=== PATIENT | male | born 1955 | race Caucasian/White ===

== ENCOUNTER 2017-02-08 14:21 | Emergency (ER) | payer MEDICARE, OTHER ==
--- NOTE | 2017-02-08 14:42 | ER Document Report ---
ED Medical Screen (RME) - General Chief Complaint: Fall Injury Stated Complaint: BACK,HIP,STOMACH PAIN Time Seen by Provider: 02/08/17 14:33 Notes: 61-year-old male who states 1 week ago he fell from a ladder onto his back from 12 feet. Patient denies any head trauma loss of consciousness. Patient states he has had some right hip pain since the fall. Patient states 3 days ago he started to develop some midline abdominal pain without radiation. He also states he feels as if his whole "back is on fire". Patient is on disability with a pain management physician secondary to back pain and surgery in the past. Patient states he also was diagnosed with a AAA past October 4.6 cms in diameter. Patient denies any weakness, numbness, chest pain, nausea, vomiting, fevers, dysuria, or diarrhea. On examination I can palpate the patient's aorta. Patient is very thin. I can auscultate no abdominal bruits. No obvious abdominal tenderness to palpation of all 4 quadrants of the abdomen. I do not detect any neck pain or stiffness. Patient has a full range of motion of the neck. Patient has no obvious tenderness to percussion of the midline spine. Patient has some right hip tenderness with no obvious swelling or deformity. Neurovascular intact distally. Given the above history and physical examination I will obtain a CT scan with IV contrast of the abdomen and pelvis to assess both the aorta and the right hip. TRAVEL OUTSIDE OF THE [place] IN LAST 30 DAYS: No - Related Data Allergies/Adverse Reactions: No Known Allergies Allergy (Verified 02/08/17 14:23) Past Medical History - Past Medical History Cardiac Medical History: Reports: Hx Hypertension Renal/ Medical History: Denies: Hx Peritoneal Dialysis Psychiatric Medical History: Reports: Hx Depression Past Surgical History: Reports: Hx Abdominal Surgery - hernia, Hx Orthopedic Surgery - l4 l5 fusion, left hand - Immunizations Hx Diphtheria, Pertussis, Tetanus Vaccination: No Physical Exam - Vital signs Vitals: Temp Pulse Resp BP Pulse Ox 98.4 F 77 18 167/70 H 99 02/08/17 14:25 02/08/17 14:25 02/08/17 14:25 02/08/17 14:25 02/08/17 14:25 Course - Vital Signs Vital signs: Temp Pulse Resp BP Pulse Ox 98.4 F 77 18 167/70 H 99 02/08/17 14:25 02/08/17 14:25 02/08/17 14:25 02/08/17 14:25 02/08/17 14:25
[2017-02-08 15:06] LABS: ABSOLUTE BASOPHILS # (AUTO) 0.1 10^3/uL (0.0-0.2); ABSOLUTE EOSINOPHILS # (AUTO) 0.2 10^3/uL (0.0-0.6); ABSOLUTE LYMPHOCYTES (AUTO) 2.1 10^3/uL (0.5-4.7); ABSOLUTE MONOCYTES (AUTO) 1.3 10^3/uL (0.1-1.4); ABSOLUTE NEUT (AUTO) 6.6 10^3/uL (1.7-8.2); BASOPHILS % (AUTO) 0.6 % (0-2); EOSINOPHILS % (AUTO) 2.1 % (0-6); HEMATOCRIT 38.9 % (37.9-51.0); HEMOGLOBIN 13.1 g/dL (13.5-17.0); HGB HCT DIFFERENCE 0.4; LYMPHOCYTES % (AUTO) 20.4 % (13-45); MEAN CORPUSCULAR HEMOGLOBIN 31.8 pg (27.0-33.4); MEAN CORPUSCULAR HGB CONC 33.6 g/dL (32.0-36.0); MEAN CORPUSCULAR VOLUME 95 fl (80-97); MONOCYTES % (AUTO) 12.4 % (3-13); RED BLOOD COUNT 4.11 10^6/uL (4.35-5.55); RED CELL DISTRIBUTION WIDTH 13.9 % (11.5-14.0); SEGMENTED NEUTROPHILS % (AUTO) 64.5 % (42-78); WHITE BLOOD COUNT 10.3 10^3/uL (4.0-10.5)
--- NOTE | 2017-02-08 15:33 | ER Document Report ---
ED General - General Mode of Arrival: Ambulatory Information source: Patient TRAVEL OUTSIDE OF THE [place] IN LAST 30 DAYS: No - HPI Patient complains to provider of: Right hip pain and possible rash Onset: Other - 3 days ago Associated symptoms: Other - see notes above <DERIK GARCIA - Last Filed: 02/08/17 19:48> <SHELLEYHAI ANN - Last Filed: 02/08/17 22:14> - General Chief Complaint: Fall Injury Stated Complaint: BACK,HIP,STOMACH PAIN Time Seen by Provider: 02/08/17 14:33 Notes: 61 year old male with history of hypertension, hyperlipidemia, tongue cancer, L4 /L5 fusion, and chronic back pain presents to the ED complaining of right hip pain and a possible rash to the upper back, neck, and arms that started 3 days ago. Patient explains that his back 'feels like he has a 2nd degree burn with blisters and as if someone is lifting his shirt over the blisters.' Patient also complains of bumps to the neck and bilateral arms that are pruritic and mild abdominal pain. Patient denies chest pain or shortness of breath. Patient states that 1 week ago he fell off a ladder while 15 feet off the ground and landed on his back. Patient sees pain management is currently on Valium, Suboxone, and Percocet. (DERIK GARCIA) - Related Data Allergies/Adverse Reactions: No Known Allergies Allergy (Verified 02/08/17 14:23) Past Medical History - General Information source: Patient - Social History Smoking Status: Unknown if Ever Smoked Family History: Reviewed & Not Pertinent - Past Medical History Cardiac Medical History: Reports: Hx Hypercholesterolemia, Hx Hypertension Renal/ Medical History: Denies: Hx Peritoneal Dialysis GI Medical History: Reports: Other - Abdominal Aorta Aneurysm Psychiatric Medical History: Reports: Hx Depression Past Surgical History: Reports: Hx Abdominal Surgery - hernia, Hx Orthopedic Surgery - l4 l5 fusion, left hand, Other - tongue surgery secondary to tongue cancer - Immunizations Hx Diphtheria, Pertussis, Tetanus Vaccination: No <DERIK GARCIA - Last Filed: 02/08/17 19:48> Review of Systems - Review of Systems Constitutional: No symptoms reported EENT: No symptoms reported Cardiovascular: No symptoms reported Respiratory: No symptoms reported Gastrointestinal: No symptoms reported Genitourinary: No symptoms reported Male Genitourinary: No symptoms reported Musculoskeletal: See HPI, Joint pain - right hip pain Skin: See HPI, Rash - upper back, neck, and bilateral arms Hematologic/Lymphatic: No symptoms reported Neurological/Psychological: No symptoms reported -: Yes All other systems reviewed and negative <DERIK GARCIA - Last Filed: 02/08/17 19:48> Physical Exam - Vital signs Interpretation: Normal - General General appearance: Appears well, Alert - HEENT Head: Normocephalic, Atraumatic Eyes: Normal Pupils: PERRL - Respiratory Respiratory status: No respiratory distress Chest status: Nontender Breath sounds: Normal Chest palpation: Normal - Cardiovascular Rhythm: Regular Heart sounds: Normal auscultation Murmur: No - Abdominal Inspection: Normal Distension: No distension Bowel sounds: Normal Tenderness: Nontender Organomegaly: No organomegaly - Back Back: Normal, Tender, Other - No rash or lesion. Tenderness to palpation of bilateral upper back and bilateral lower back. No midline tenderness to palpation.. No: Vertebra tenderness, Wounds - Extremities General upper extremity: Normal inspection, Nontender, Normal color, Normal ROM , Normal temperature General lower extremity: Normal inspection, Nontender, Normal color, Normal ROM , Normal temperature, Normal weight bearing. No: Alexandria's sign Hip: Tender - R hip. No: Pain with ROM, Unable to bear weight - Neurological Neuro grossly intact: Yes Cognition: Normal Orientation: AAOx4 Diana Coma Scale Eye Opening: Spontaneous Diana Coma Scale Verbal: Oriented [place] Coma Scale Motor: Obeys Commands Diana Coma Scale Total: 15 Speech: Normal Motor strength normal: LUE, RUE, LLE, RLE Sensory: Altered light touch - upper back T4-10 b/l. Can feel pressure but states no 2 point discrimination - Psychological Associated symptoms: Normal affect, Normal mood - Skin Skin Temperature: Warm Skin Moisture: Dry Skin Color: Normal <HAI ROSA - Last Filed: 02/08/17 22:14> - Vital signs Vitals: Temp Pulse Resp BP Pulse Ox 98.4 F 77 18 167/70 H 99 02/08/17 14:25 02/08/17 14:25 02/08/17 14:25 02/08/17 14:25 02/08/17 14:25 Course - Laboratory Result Diagrams: 02/08/17 14:50 02/08/17 16:58 <DERIK GARCIA - Last Filed: 02/08/17 19:48> - Laboratory Result Diagrams: 02/08/17 14:50 02/08/17 16:58 <HAI ROSA - Last Filed: 02/08/17 22:14> - Re-evaluation Re-evalutation: 02/08/17 19:40 Patient updated on results. (DERIK GARCIA) 02/08/17 18:27 Patient is a 61-year-old male who comes in after a fall last week. Patient is in pain management and is taking pain medication at home. He is concerned about his sensation in his upper back. He does not have an appointment with his doctor until February 25. 02/08/17 20:10 No acute findings on blood work or on imaging. No evidence for acute intrathoracic printer intraspinal pathology. Patient is to follow-up with his doctor. He has been given an outpatient form for MRI. Patient agrees with this plan. No weakness. Full range of motion. Return if any worsening or concerning symptoms. Stable for discharge. (HAI ROSA) - Vital Signs Vital signs: Temp Pulse Resp BP Pulse Ox 98.1 F 82 18 154/78 H 100 02/08/17 20:15 02/08/17 20:15 02/08/17 20:15 02/08/17 20:15 02/08/17 20:15 - Laboratory Laboratory results interpreted by me: 02/08/17 02/08/17 14:50 16:58 RBC 4.11 L Hgb 13.1 L Potassium 5.1 H Carbon Dioxide 31 H Glucose 123 H AST 14 L Discharge <DERIK GARCIA - Last Filed: 02/08/17 19:48> <HAI ROSA - Last Filed: 02/08/17 22:14> - Discharge Clinical Impression: Contusion of hip Qualifiers: Encounter type: initial encounter Laterality: right Qualified Code(s): S70.01XA - Contusion of right hip, initial encounter Back pain Qualifiers: Back pain location: thoracic back pain Chronicity: acute Back pain laterality: bilateral Qualified Code(s): M54.6 - Pain in thoracic spine Condition: Stable Disposition: HOME, SELF-CARE Instructions: Low Back Pain ([facility]), Upper Back Strain ([facility]) Forms: Follow-Up Radiology Testing Referrals: AB BONDS MD [Primary Care Provider] - Follow up tomorrow Joey Attestation: 02/08/17 22:14 I personally performed the services described in the documentation, reviewed and edited the documentation which was dictated to the scribe in my presence, and it accurately records my words and actions. (HAI ROSA) Scribe Documentation - Scribe Written by Joey:: Joey Macedo, 02/08/2017 1554 acting as scribe for :: Shelley <DERIK GARCIA - Last Filed: 02/08/17 19:48>
[2017-02-08] MEDS ORDERED: ONDANSETRON HCL INJ/PF 4 MG/2 ML SDV IV ONE (16:03)
[2017-02-08] MEDS ORDERED: MORPHINE SULFATE 10 MG/ML INJ IV ONE ×2 (16:03→18:47)
[2017-02-08 18:18] LABS: ALANINE AMINOTRANSFERASE 24 U/L (21-72); ALBUMIN 3.8 g/dL (3.5-5.0); ALKALINE PHOSPHATASE 80 U/L (38-126); ANION GAP 8 (5-19); ASPARTATE AMINO TRANSFERASE 14 U/L (17-59); BILIRUBIN,DIRECT 0.3 mg/dL (0.0-0.4); BILIRUBIN,TOTAL 0.4 mg/dL (0.2-1.3); BLOOD UREA NITROGEN 15 mg/dL (7-20); CALCIUM 9.7 mg/dL (8.4-10.2); CARBON DIOXIDE 31 mmol/L (22-30); CHLORIDE 99 mmol/L (98-107); CREATININE RESULT 0.63 mg/dL (0.52-1.25); GLUCOSE 123 mg/dL (75-110); LIPASE 78.4 U/L (23-300); POTASSIUM 5.1 mmol/L (3.6-5.0); SODIUM 137.7 mmol/L (137-145); TOTAL PROTEIN 6.7 g/dL (6.3-8.2)
[2017-02-08 20:24] VITALS: BP 154/78
== END 2017-02-08 20:15 | disposition home or self-care (01) ==
LOC: ER 14:21
DX: S70.01XA Contusion of right hip, initial encounter (principal); M54.6 Pain in thoracic spine; M54.9 Dorsalgia, unspecified; M25.559 Pain in unspecified hip; R10.9 Unspecified abdominal pain; I10 Essential (primary) hypertension; E78.5 Hyperlipidemia, unspecified; Z85.810 Personal history of malignant neoplasm of tongue; X58.XXXA Exposure to other specified factors, initial encounter
CPT/HCPCS: 96376; 99284; 96374; 96375; 36415; 83690; 85025; 80053; 71260; 74177; J2270; J2405

== ENCOUNTER → 2017-02-11 | Outpatient (CLI) | payer MEDICARE, OTHER | LOC: RAD 15:27 | PROVIDERS: ATTEND Emergency Medicine | DX: M54.9 Dorsalgia, unspecified (principal); R20.9 Unspecified disturbances of skin sensation | CPT/HCPCS: 72146 ==

== ENCOUNTER 2017-06-16 19:59 | Emergency (ER) | payer MEDICARE, OTHER ==
[2017-06-16] MEDS ORDERED: NALOXONE HCL INJ/PF 0.4 MG/1 ML SDV ONE (21:18)
[2017-06-16 21:21] LABS: ABSOLUTE EOSINOPHILS # (AUTO) 0.3 10^3/uL (0.0-0.6); ABSOLUTE MONOCYTES (AUTO) 0.8 10^3/uL (0.1-1.4); ABSOLUTE NEUT (AUTO) 3.9 10^3/uL (1.7-8.2); BASOPHILS % (AUTO) 0.4 % (0-2); EOSINOPHILS % (AUTO) 3.2 % (0-6); HEMATOCRIT 32.6 % (37.9-51.0); HEMOGLOBIN 11.1 g/dL (13.5-17.0); HGB HCT DIFFERENCE 0.7; LYMPHOCYTES % (AUTO) 37.2 % (13-45); MEAN CORPUSCULAR HEMOGLOBIN 31.6 pg (27.0-33.4); MEAN CORPUSCULAR VOLUME 93 fl (80-97); MONOCYTES % (AUTO) 10.5 % (3-13); RED BLOOD COUNT 3.51 10^6/uL (4.35-5.55); RED CELL DISTRIBUTION WIDTH 12.9 % (11.5-14.0); SEGMENTED NEUTROPHILS % (AUTO) 48.7 % (42-78)
[2017-06-16 21:31] LABS: ALANINE AMINOTRANSFERASE 20 U/L (21-72); ALBUMIN 3.4 g/dL (3.5-5.0); ALKALINE PHOSPHATASE 73 U/L (38-126); ANION GAP 12 (5-19); ASPARTATE AMINO TRANSFERASE 15 U/L (17-59); BILIRUBIN,DIRECT 0.1 mg/dL (0.0-0.4); BILIRUBIN,TOTAL 0.1 mg/dL (0.2-1.3); BLOOD UREA NITROGEN 19 mg/dL (7-20); CALCIUM 9.1 mg/dL (8.4-10.2); CARBON DIOXIDE 25 mmol/L (22-30); CHLORIDE 104 mmol/L (98-107); CREATININE RESULT 0.93 mg/dL (0.52-1.25); GLUCOSE 92 mg/dL (75-110); POTASSIUM 3.9 mmol/L (3.6-5.0); SODIUM 141.2 mmol/L (137-145); TOTAL PROTEIN 5.8 g/dL (6.3-8.2)
--- NOTE | 2017-06-16 21:39 | ER Document Report ---
ED General - General Chief Complaint: Altered Mental Status Stated Complaint: ALTERED MENTAL STATUS Time Seen by Provider: 06/16/17 20:14 Cannot obtain history due to: Altered mental status Notes: Patient is a 62-year-old male with a history of opiate dependence, benzodiazepine dependence, chronic pain, who presents after having a syncopal episode in a [employer]. Initially upon arrival patient was unable to provide any meaningful history, was difficult to arouse. Initial blood glucose at [place] was apparently 15. It did rise into the mid 60s after receiving orange juice. Patient does not have a history of diabetes and does not take any oral hypoglycemics or insulin. He does admit to only having a peanut butter and jelly sandwich today. At time of assessment patient does not provide any meaningful history, having difficulty relating to me exactly what happened, why he was in [employer], or what medications he took today. He does appear to be under the influence of narcotics. He is protecting his airway without difficulty. His ex- comes to the bedside approximately 10 minutes into the history taking and relates that patient has had multiple similar episodes in the past, is frequently "like a zombie" due to his prescribed medications. History is otherwise limited secondary to patient's lack of ability to recall the events of today. TRAVEL OUTSIDE OF THE [place] IN LAST 30 DAYS: No - Related Data Allergies/Adverse Reactions: No Known Allergies Allergy (Verified 02/08/17 14:23) Past Medical History - General Information source: Patient, Relative Cannot obtain history due to: Altered mental status - Social History Smoking Status: Never Smoker Frequency of alcohol use: None Drug Abuse: Prescription drugs Lives with: Alone Family History: Reviewed & Not Pertinent Patient has suicidal ideation: - unable to assess Patient has homicidal ideation: - unable to assess - Past Medical History Cardiac Medical History: Reports: Hx Hypercholesterolemia, Hx Hypertension Renal/ Medical History: Denies: Hx Peritoneal Dialysis Psychiatric Medical History: Reports: Hx Depression Past Surgical History: Reports: Hx Abdominal Surgery - hernia, Hx Orthopedic Surgery - l4 l5 fusion, left hand, Other - tongue surgery secondary to tongue cancer - Immunizations Hx Diphtheria, Pertussis, Tetanus Vaccination: No Review of Systems - Review of Systems Notes: Constitutional: Negative for fever. HENT: Negative for sore throat. Eyes: Negative for visual changes. Cardiovascular: Negative for chest pain. Respiratory: Negative for shortness of breath. Gastrointestinal: Negative for abdominal pain, vomiting or diarrhea. Genitourinary: Negative for dysuria. Musculoskeletal: Negative for back pain. Skin: Negative for rash. Neurological: Negative for headaches, weakness or numbness. 10 point ROS negative except as marked above and in HPI. Physical Exam - Vital signs Vitals: Pulse Resp BP Pulse Ox 69 18 144/86 H 97 06/16/17 20:00 06/16/17 20:00 06/16/17 20:00 06/16/17 20:00 Interpretation: Hypertensive Notes: PHYSICAL EXAMINATION: GENERAL: Appears underweight, no acute distress HEAD: Atraumatic, normocephalic. EYES: Pupils equal round and reactive to light, extraocular movements intact, sclera anicteric, conjunctiva are normal. ENT: nares patent, oropharynx clear without exudates. Moderately dry mucous membranes. NECK: Normal range of motion, supple without lymphadenopathy LUNGS: Breath sounds clear to auscultation bilaterally and equal. No wheezes rales or rhonchi. HEART: Regular rate and rhythm without murmurs ABDOMEN: Soft, nontender, normoactive bowel sounds. No guarding, no rebound. No masses appreciated. EXTREMITIES: Normal range of motion, no pitting or edema. No cyanosis. NEUROLOGICAL: No focal neurological deficits. Moves all extremities spontaneously and on command. PSYCH: Initially somewhat somnolent but mentation does improve throughout the encounter SKIN: Warm, Dry, normal turgor, no rashes or lesions noted. Course - Re-evaluation Re-evalutation: 06/16/17 21:38 Patient presents with altered mental status in the setting of hypoglycemia after he apparently had a syncopal episode in [facility]. Patient does wake him to speak to me but does appear somewhat disoriented although his ex- at the bedside notes that this is normal for him. The patient appears to be on an inappropriate amount of pain medications including Soma, Percocet, Valium, and Suboxone on a daily basis. His at the bedside reports that she left him due to his drug abuse issue I do suspect the patient has been inappropriately taking his medications again today causing both hypoglycemia and his syncopal episode. He admits to not eating hardly anything all day today. He does not take any oral hypoglycemics or insulin that would have triggered the episode of hypoglycemia. He has not required Narcan for reversal. I will obtain basic labs and plan for discharge home. I have not started the patient that he needs to seek help as he is addicted to multiple pain medications. 06/16/17 21:55 Patient's laboratories are unremarkable. He is alert, oriented, able to ambulate. He is requesting to be discharged home. At this time will discharge with return precautions and follow-up recommendations. Verbal discharge instructions given a the bedside and opportunity for questions given. Medication warnings reviewed. Patient is in agreement with this plan and has verbalized understanding of return precautions and the need for primary care follow-up in the next 24-72 hours. - Vital Signs Vital signs: Temp Pulse Resp BP Pulse Ox 69 13 135/65 H 97 06/16/17 20:00 06/16/17 21:01 06/16/17 21:01 06/16/17 20:00 - Laboratory Result Diagrams: 06/16/17 20:17 06/16/17 20:17 Laboratory results interpreted by me: 06/16/17 06/16/17 06/16/17 20:17 20:17 21:50 RBC 3.51 L Hgb 11.1 L Hct 32.6 L Total Bilirubin 0.1 L AST 15 L ALT 20 L Total Protein 5.8 L Albumin 3.4 L Urine Glucose (UA) 50 H - EKG Interpretation by Me Additional EKG results interpreted by me: 06/17/17 03:01 Normal sinus rhythm. Rate 67. No ST elevations or depressions. QTC is 439. Discharge - Discharge Clinical Impression: Hypoglycemia Opiate dependence Qualifiers: Substance use status: with unspecified opioid-induced disorder Qualified Code(s ): F11.29 - Opioid dependence with unspecified opioid-induced disorder Altered mental status Qualifiers: Altered mental status type: unspecified Qualified Code(s): R41.82 - Altered mental status, unspecified Condition: Good Disposition: HOME, SELF-CARE Additional Instructions: You need to get off of all the controlled substances you are taking. Discussed this with your doctor as you cannot continue take these medications long-term and it is a serious detriment your health. Your labs are normal today. Please make sure you eat and drink throughout the day. Please return to the emergency room immediately if you experience any concerning symptoms including high fevers , severe headache, chest pain, difficulty breathing, abdominal pain, slurred speech, numbness or weakness in your arms or legs, or any other symptom that concerns you.
[2017-06-16 22:21] LABS: APPEARANCE,URINE CLEAR; BILIRUBIN,URINE NEGATIVE (NEGATIVE); GLUCOSE, URINE 50 mg/dL (NEGATIVE); KETONES,URINE NEGATIVE (NEGATIVE); LEUKOCYTE ESTERASE,URINE NEGATIVE (NEGATIVE); NITRITE,URINE NEGATIVE (NEGATIVE); PROTEIN,URINE NEGATIVE (NEGATIVE); URINE SPECIFIC GRAVITY 1.016; UROBILINOGEN,URINE NEGATIVE mg/dL (<2.0)
[2017-06-16 22:33] VITALS: BP 135/65
--- NOTE | 2017-06-17 07:17 | EKG REPORT ---
SEVERITY:- NORMAL ECG - SINUS RHYTHM : Confirmed by: Roosevelt Wilkinson MD 17-Jun-2017 07:17:09
== END 2017-06-16 22:00 | disposition home or self-care (01) ==
LOC: ER 19:59
DX: F11.29 Opioid dependence with unspecified opioid-induced disorder (principal); E16.2 Hypoglycemia, unspecified; R55 Syncope and collapse; I10 Essential (primary) hypertension; Z79.899 Other long term (current) drug therapy
CPT/HCPCS: 36415; 80053; 81001; 82962; 84484; 85025; 93005; 93010; 99285

== ENCOUNTER → 2017-08-15 | Outpatient (CLI) | payer MEDICARE, OTHER ==
--- NOTE | 2017-08-15 16:29 | RADIOLOGY REPORT (SQ) ---
EXAM DESCRIPTION: BARIUM SWALLOW ESOPHAGUS COMPLETED DATE/TIME: 08/15/2017 9:05 am REASON FOR STUDY: DYSPHAGIA R13.12 DYSPHAGIA, OROPHARYNGEAL PHASE COMPARISON: CT chest 02/08/2017 TECHNIQUE: Under fluoroscopic guidance, patient ingested effervescent crystals, thick and thin bariu m. Fluoroscopic spot images and routine radiographic images acquired and stored on PACS. 12 MM BARIUM TABLET GIVEN: Yes. The 12 mm barium tablet paused in the distal 3rd of the esophagus or about 3 minutes before passing t hrough into the stomach. LIMITATIONS: None. FLUOROSCOPY TIME: 3 minutes 3 seconds 16 series of images saved to PACS. FINDINGS: NEUROMUSCULAR COORDINATION OF SWALLOW: Throughout the study, the patient aspirated small a frandy of thin and thick liquid barium. Some episodes probable did cough response, others did not. There are thickened aryepiglottic folds. On series 10, SAYRA swallowing images of the upper esophagus, there is subglottic aspiration. Thickened area epiglottic folds. A polypoid lesion along the right area epiglottic fold may be present. Consider examination by ENT with nasopharyngoscope. ESOPHAGEAL MOTILITY: Normal peristalsis. Occasional tertiary contractions of the esophagus without s pasm. ESOPHAGEAL MUCOSA: Normal mucosa without masses or ulceration. No fixed esophageal stricture. Bariu m tablet paused in the distal 3rd of the esophagus for about 3 minutes before dropping through into t he stomach. GASTRO-ESOPHAGEAL JUNCTION: No hiatal hernia or reflux. NON-GI TRACT STRUCTURES: No significant finding. OTHER: No other significant finding. IMPRESSION: Subglottic aspiration throughout the study. Question polypoid lesion versus asymmetric thickening right area epiglottic fold. Consider ENT evaluation Occasional tertiary contractions of the esophagus No fixed esophageal stricture. No hiatal hernia or gastroesophageal reflux on today's study COMMENT: Quality ID [id number]: Final reports for procedures using fluoroscopy that document radiation exp osure indices, or exposure time and number of fluorographic images (if radiation exposure indices are not available) TECHNICAL DOCUMENTATION: JOB ID: [id number] [employer]- All Rights Reserved
== END ==
LOC: RAD 08:24
PROVIDERS: ATTEND Internal Medicine
DX: R13.12 Dysphagia, oropharyngeal phase (principal)
CPT/HCPCS: 74220

== ENCOUNTER 2018-05-01 20:35 | Emergency (ER) | payer MEDICARE, OTHER ==
[2018-05-01] MEDS ORDERED: CEFTRIAXONE INJ 1000 MG VIAL IM ONE (22:12)
[2018-05-01] MEDS ORDERED: LIDOCAINE 1% INJ-PF (10 MG/ML) 30 ML SDV INJ ONE (22:12)
[2018-05-01] MEDS ORDERED: DIPH/PERTUSS(ACELL)/TETANUS VAC/PF 0.5 ML SYR (>=10YO) IM ONE (22:12)
[2018-05-01] MEDS ORDERED: AMOXICILLIN TRIHYD 250 MG CAPSULE PO ONE (22:21)
[2018-05-01] MEDS ORDERED: AMOXICILLIN TR/POT CLAVULANATE 500-125 MG TAB PO ONE (22:21)
--- NOTE | 2018-05-01 22:26 | ER Document Report ---
HPI - HPI Patient complains to provider of: Left hand pain Onset: Yesterday Onset/Duration: Gradual Quality of pain: Achy Pain Level: 3 Context: Patient states that he was attempting to spray a loss in this and accidentally tripped and fell landing on his left hand. Patient does have an abrasion to the left wrist area. Patient states that the abrasion did not occur from the fall but that he has had problems with skin lesions that come and go. Patient does state he has 2 cats at home but he is only had a cat scratch to the right forearm and none noted to the left hand. Patient states his main tenderness is involving the left fourth CP joint area. Patient has a small pustule to the left fourth digit and states that he had a small puncture wound here. Associated Symptoms: Other - Left hand pain, left hand swelling. denies: Fever Exacerbated by: Movement Relieved by: Denies Similar symptoms previously: No Recently seen / treated by doctor: No - ROS ROS below otherwise negative: Yes Systems Reviewed and Negative: Yes All other systems reviewed and negative - CONSTITUTIONAL Constitutional: DENIES: Fever, Chills - NEURO Neurology: DENIES: Weakness, Vision blurred, Dizzinesss / Vertigo - GASTROINTESTINAL Gastrointestinal: DENIES: Nausea - MUSCULOSKELETAL Musculoskeletal: REPORTS: Extremity pain - hit left hand, Swelling - DERM Skin Color: Erythema Skin Problems: Puncture Wound Past Medical History - General Information source: Patient - Social History Smoking Status: Current Every Day Smoker Chew tobacco use (# tins/day): No Smoking Education Provided: Yes Frequency of alcohol use: None Drug Abuse: None Occupation: retired Lives with: Alone Family History: Reviewed & Not Pertinent Patient has suicidal ideation: No Patient has homicidal ideation: No - Past Medical History Cardiac Medical History: Reports: Hx Hypercholesterolemia, Hx Hypertension Neurological Medical History: Reports: Hx Cerebrovascular Accident Renal/ Medical History: Denies: Hx Peritoneal Dialysis Malignancy Medical History: Reports Other - tongue cancer Psychiatric Medical History: Reports: Hx Depression Past Surgical History: Reports: Hx Abdominal Surgery - hernia, Hx Orthopedic Surgery - l4 l5 fusion, left hand, Other - tongue surgery secondary to tongue cancer - Immunizations Hx Diphtheria, Pertussis, Tetanus Vaccination: No Vertical Provider Document - CONSTITUTIONAL Agree With Documented VS: Yes Exam Limitations: No Limitations General Appearance: WD/WN, No Apparent Distress - INFECTION CONTROL TRAVEL OUTSIDE OF THE [place] IN LAST 30 DAYS: No - HEENT HEENT: Atraumatic, Normocephalic - NECK Neck: Normal Inspection, Supple - RESPIRATORY Respiratory: Breath Sounds Normal, No Respiratory Distress - CARDIOVASCULAR Cardiovascular: Regular Rate, Regular Rhythm Pulses: Normal: Radial - MUSCULOSKELETAL/EXTREMETIES Musculoskeletal/Extremeties: MAEW, FROM, Tender, Edema - 2+ edema left hand - NEURO Level of Consciousness: Awake, Alert, Appropriate Motor/Sensory: No Motor Deficit - DERM Integumentary: Warm, Dry, No Rash Course - Re-evaluation Re-evalutation: 05/01/18 22:23 Patient with generalized swelling to left hand. Patient most tender to the left fourth MCP joint. Patient with full range of motion to hand and fingers. No concern for tenosynovitis. Patient does have subtle erythema noted to the dorsal and palmar surface of the hand. Patient does have an abrasion over the left dorsal wrist area as well as a small pustule to the left fourth digit. 05/01/18 22:24 Patient does have a cat and has had scratches. Patient with a cat scratch to the right forearm. X-ray reviewed. No concern for fracture. Will cover for developing cellulitis at this time. Good return precautions given. - Diagnostic Test Radiology reviewed: Pending, Image reviewed Discharge - Discharge Clinical Impression: Hand pain, left Cellulitis Qualifiers: Site of cellulitis: extremity Site of cellulitis of extremity: upper extremity Laterality: left Qualified Code(s): L03.114 - Cellulitis of left upper limb Condition: Stable Disposition: HOME, SELF-CARE Instructions: Augmentin ([facility]), Cellulitis ([facility]), Tetanus Immunization Given ( [facility]) Additional Instructions: Return immediately for any new or worsening symptoms Followup with your primary care provider, call tomorrow to make a followup appointment Follow-up with orthopedic doctor for any persistent pain or problems Prescriptions: Amox Tr/Potassium Clavulanate [Augmentin 875-125 Tablet] 1 tab PO BID 10 Days tablet Forms: Smoking Cessation Education Referrals: XIOMARA JENSEN MD [Primary Care Provider] - Follow up tomorrow ESTHER MAXWELL DO [ACTIVE STAFF] - Follow up as needed
--- NOTE | 2018-05-01 22:30 | RADIOLOGY REPORT (SQ) ---
EXAM DESCRIPTION: HAND LEFT 3 VIEWS COMPLETED DATE/TIME: 05/01/2018 9:46 pm REASON FOR STUDY: Pain s/p fall - tried to catch self. COMPARISON: None. EXAM PARAMETERS: NUMBER OF VIEWS: Three views. TECHNIQUE: AP, lateral and oblique radiographic images acquired of the left hand. LIMITATIONS: None. FINDINGS: MINERALIZATION: Normal. BONES: No acute fracture or dislocation. No worrisome bone lesions. JOINTS: No effusions. SOFT TISSUES: Soft tissue swelling. OTHER: No other significant finding. IMPRESSION: Soft tissue swelling. No fracture is appreciated TECHNICAL DOCUMENTATION: JOB ID: [id number] [employer]- All Rights Reserved Reading location - IP/workstation name: CARLOS ENRIQUE
[2018-05-01 23:08] VITALS: BP 144/94
== END 2018-05-01 23:08 | disposition home or self-care (01) ==
LOC: ER 20:35
DX: M79.642 Pain in left hand (principal); W01.10XA Fall on same level from slipping, tripping and stumbling with subsequent striking against unspecified object, initial encounter; L03.114 Cellulitis of left upper limb; F17.200 Nicotine dependence, unspecified, uncomplicated; E78.00 Pure hypercholesterolemia, unspecified; I10 Essential (primary) hypertension; Z86.73 Personal history of transient ischemic attack (TIA), and cerebral infarction without residual deficits; Z23 Encounter for immunization
CPT/HCPCS: 99283; 96372; 90471; 73130; 90715; A9270 ×2; J3490; J0696